=== PATIENT | female | born 1960 | race African-American/Black ===

== ENCOUNTER → 2021-02-14 | Outpatient (CLI) | payer BC ==
[~2021-02-14] MED LIST: LIDOCAINE 1% Multi-Dose 20 ML VIAL. INJ ONE; LIDOCAINE 2%/EPI 1:100,000 20 ML VIAL. INJ ONE
--- NOTE | 2021-02-14 10:03 | RAD ---
EXAM: 1. STEREOTACTICALLY GUIDED VACUUM ASSISTED RIGHT BREAST CORE BIOPSY. 2. POSTCLIP DIGITAL RIGHT MAMMOGRAPHY. 3. SPECIMEN RADIOGRAPH. HISTORY: Right breast microcalcifications. Stereotactic biopsy is requested. FINDINGS: The procedure and its risks and benefits were discussed with the patient. Risks discussed i ncluded, but were not limited to, pain, infection, bleeding and need for repeat biopsy. The patient p rovided verbal and written consent. A timeout procedure was performed. The target calcifications slightly superiorly and laterally were localized stereotactically. The over lying skin was sterilely prepped and infiltrated with 1% lidocaine for local anesthesia. The deeper s oft tissues were infiltrated with lidocaine with epinephrine for anesthesia and hemostasis. A 9 gauge vacuum-assisted core biopsy system was advanced to the target under stereotactic guidance. 6 core bi opsy specimens were obtained. A specimen radiograph demonstrates the target calcifications within the specimen. A postbiopsy clip was placed and postoperative images were obtained. Instrumentation was w ithdrawn and pressure held and hemostasis. A sterile dressing was placed. There were no immediate com plications. Postclip digital right mammography was obtained in CC and MLO projections and interpreted on a [employer] workstation. The postbiopsy clip corresponds with the target lesion. It appears to be perhaps 2 c m inferior to the former site of the calcifications, though this could be rotational. The calcificati ons have been completely removed. There are mild postprocedural changes. IMPRESSION: 1. Successful stereotactically guided vacuum assisted core biopsy of right breast microcalcifications with clip placement. 2. The target calcifications are included on the specimen radiograph. 3. Postclip mammography demonstrates the postbiopsy clip in correspondence with the target lesion, pe rhaps 2 cm inferior to the prior site of the calcifications. Electronically signed by: Alvarado Mariee MD (02/14/2021 10:01 AM) [id number]
--- NOTE | 2021-02-16 08:08 | PATHOLOGY ---
[facility] Accession Number: [id number] . 01 Material submitted: . breast - RIGHT BREAST CALCIFICATIONS. Modifiers: right . 02 Diagnosis: Breast tissue, right breast biopsy: - Micronodular stromal sclerosis, focal, with associated calcifications. - Proliferative fibrocystic changes, focal, with moderate/florid ductal epithelial hyperplasia. - Sclerosing adenosis, focal. . (JPM:mm; 02/15/2021) [facility] 02/15/2021 1702 Local . 02 Comment: There is no atypia or evidence of malignancy. . (JPM:mml; 02/15/2021) . 02 Electronically signed: . Chino Leggett MD, Pathologist NPI- [id number] . 01 Gross description: . Received in formalin labeled "[place], [place] and right breast". Received are multiple fragments of white-yellow fibroadipose breast tissue measuring in aggregate 2.0 x 2.0 x 0.3 cm. The specimen is entirely submitted in cassette A1. The specimen was collected 02/14/2021 at 0910 hours and placed in formalin at 0913 hours. The specimen will be in formalin more than 6 hours and less than 72 hours.(J; 02/14/2021) BLJ/BLJ 02/15/2021 1659 Local . 02 Pathologist provided ICD-10: N60.21, N60.11, N62 . 02 CPT . 562306 Specimen Comment: A courtesy copy of this report has been sent to [phone], [phone] Specimen Comment: [id number] Specimen Comment: Report sent to / DR TOUSSAINT Specimen Comment: Report sent to Specimen Comment: A duplicate report has been generated due to demographic updates. Performed at: 01 [facility] [address] [facility] [address], [place] [id number] MD Liam Roland MD Phone: [phone] Performed at: 02 [facility] [address] [place], [place] [id number] MD Chino Leggett MD Phone: [phone]
== END | disposition home or self-care (01) ==
LOC: MAMMO 08:06
PROVIDERS: ATTEND Internal Medicine
DX: R92.0 Mammographic microcalcification found on diagnostic imaging of breast (principal); N60.21 Fibroadenosis of right breast; N60.11 Diffuse cystic mastopathy of right breast; Z79.899 Other long term (current) drug therapy
CPT/HCPCS: 19081; 77065; 88305; J3490